=== PATIENT | male | born 1975 | race Caucasian/White ===

== ENCOUNTER 2022-07-23 06:40 | Emergency (ER) | payer MEDICAID ==
[~2022-07-23] VITALS: Ht 167.6 cm; Wt 149.7 kg
[2022-07-23 06:43] VITALS: BP 134/90
--- NOTE | 2022-07-23 06:45 | NUR ---
STAT EKG at triage.
--- NOTE | 2022-07-23 06:50 | NUR ---
Dr. Nichols examining patient.
--- NOTE | 2022-07-23 06:52 | NUR ---
Patient taken to bed 7 via WC
--- NOTE | 2022-07-23 06:53 | NUR ---
PT TAKEN TO BED 7
[2022-07-23] MEDS ORDERED: ASPIRIN 325 MG TAB PO ONE (06:55)
[2022-07-23] MEDS ORDERED: NITROGLYCERIN 0.4 MG TAB SL ONE ×2 (06:55→07:15)
--- NOTE | 2022-07-23 07:04 | NUR ---
RAD AT BEDSIDE
[2022-07-23] MEDS ORDERED: MORPHINE SULFATE 4 MG/ML SYR IVP ONE (07:10)
[2022-07-23] MEDS ORDERED: NACL 0.9% 1,000 ML IV ONE (07:10)
[2022-07-23] MEDS ORDERED: ONDANSETRON 4 MG/2 ML VIAL IVP ONE (07:10)
--- NOTE | 2022-07-23 07:14 | NUR ---
REPORT CALLED TO [facility] SPOKE TO CRUZ WATKINS ACCEPTING IS DR. MOSQUEDA
--- NOTE | 2022-07-23 07:15 | NUR ---
XRAY HAS BEEN DONE. PT HAS BEEN SWABBED. LABS HAVE BEEN DRAWN. PT IS STILL EXPERIENCING PAIN 10/10 ON CHEST AFTER MORPHINE HAS BEEN GIVEN. A/OX4.
--- NOTE | 2022-07-23 07:15 | NUR ---
COVID-19 swabs collected and sent to lab.
--- NOTE | 2022-07-23 07:18 | NUR ---
X-Ray at bedside.
--- NOTE | 2022-07-23 07:22 | NUR ---
Recieved report from CRUZ Moise for transfer of care.
--- NOTE | 2022-07-23 07:23 | NUR ---
HAND OFF CARE GIVEN TO CRUZ RAMÍREZ
--- NOTE | 2022-07-23 07:28 | NUR ---
[facility] TRANSPORT AT BEDSIDE
[2022-07-23 07:31] LABS: BASOPHILS # (AUTO) 0.1 K/uL (0.00-0.22); BASOPHILS % (AUTO) 0.4 % (0.0-2.0); EOSINOPHILS # (AUTO) 0.1 K/uL (0-0.4); EOSINOPHILS % (AUTO) 0.2 % (0.0-4.0); HEMATOCRIT 41.9 % (36-52); HEMOGLOBIN 13.9 g/dL (12.0-18.0); LYMPHOCYTES # (AUTO) 2.1 K/uL (2.0-11.5); LYMPHOCYTES % (AUTO) 10.2 % (20.5-51.1); MEAN CORPUSCULAR HEMOGLOBIN 29 pg (27-31); MEAN CORPUSCULAR HGB CONC 33 g/dL (33-37); MEAN CORPUSCULAR VOLUME 87.8 fL (80-94); MONOCYTES # (AUTO) 0.8 K/uL (0.8-1.0); MONOCYTES % (AUTO) 3.7 % (1.7-9.3); NEUTROPHILS % (AUTO) 85.5 % (42.2-75.2); PLATELET COUNT (AUTO) 400 K/uL (140-450); RED BLOOD CELL COUNT(AUTO) 4.77 MIL/uL (4.20-6.10); WHITE BLOOD COUNT (AUTO) 21.1 K/uL (4.8-10.8)
[2022-07-23 07:36] VITALS: BP 143/80
--- NOTE | 2022-07-23 07:36 | NUR ---
Patient to be transferred to [facility]. Is being transferred due to Higher Level of Care. Receiving facility has accepting physician and available space. ER physician has signed transfer form. Patient or responsible democrat has agreed to transfer and signed form. Patient belongings inventoried and will be sent with patient. Copy of nursing notes, lab reports, EKG, Physicians Orders and X-rays to be sent with patient. Report called to CRUZ Puckett at receiving facility. [facility] ambulance service has been called for transfer.
[2022-07-23 07:38] LABS: ALBUMIN 3.3 g/dL (3.4-5.0); ANION GAP 17.6 (8-16); CARBON DIOXIDE 26.6 mmol/L (21-32); CREATININE 1.2 mg/dL (0.6-1.3); POTASSIUM 4.2 mmol/L (3.5-5.1); TOTAL BILIRUBIN 0.2 mg/dL (0.0-1.0)
[2022-07-23 07:39] LABS: PROTHROMBIN TIME 9.9 secs (10.8-13.4)
--- NOTE | 2022-07-23 07:45 | NUR ---
The patient's care was reviewed and supervised by [place] 05 PEREZ, RN.
== END 2022-07-23 07:36 | disposition short-term general hospital (02) ==
LOC: MED 06:40
DX: I21.09 ST elevation (STEMI) myocardial infarction involving other coronary artery of anterior wall (principal); Z20.822 Contact with and (suspected) exposure to COVID-19; E66.9 Obesity, unspecified; Z88.6 Allergy status to analgesic agent
CPT/HCPCS: 36415; 71045; 80053; 83880; 84484; 85025; 85610; 85730; 87426; 96374; 96375; 99291; J1644; J2270; J2405; Q0092; 93005